=== PATIENT | male | born 1970 | race Caucasian/White ===

== ENCOUNTER 2019-11-04 15:23 | Emergency (ER) | payer OTHER, SELFPAY ==
--- NOTE | ~2019-11-04 | CT_ITS ---
EXAMINATION: CT abdomen pelvis w con DATE: 11/04/2019 17:22 INDICATION: Right-sided abdomen pain. TECHNIQUE: Computed tomography (CT) of the abdomen and pelvis was performed with 100 cc Omnipaque 350 intravenous contrast. The dose-length product was 601.00 mGy-cm. Automated exposure control and iter ative reconstruction technique were employed. COMPARISON: None. FINDINGS: The lung bases are unremarkable. No significant pleural or pericardial effusion. Heart size is normal. There are calcified granulomas in the spleen. No bowel obstruction. There is a 3 mm right UVJ stone with moderate right hydroureteronephrosis. There is a 4 cm right renal cyst. Tiny fat-cont aining umbilical hernia. Colonic diverticulosis without evidence for diverticulitis. No free air or f ree fluid. There were wedge compression deformities of T12, L1 and L2, likely chronic. IMPRESSION: 1. 3 mm right UVJ stone with moderate hydroureteronephrosis. Reviewed, dictated and finalized at location [facility]. LAB TECHNICIAN
[2019-11-04 15:24] VITALS: BP 154/108; PULSE 66; RESP 20; O2SAT 100
[2019-11-04 15:36] LABS: Basophils Absolute Auto 0.1 K/mm3 (0.0-0.1); Basophils Percent Auto 0.6 % (0.2-1.2); Eosinophils Absolute Auto 0.2 K/mm3 (0-0.3); Eosinophils Percent Auto 1.2 % (0-4.4); Hematocrit 40.5 % (42.0-52.0); Hemoglobin 13.5 g/dL (14.0-18.0); Immature Granulocyte Absolute 0.04 K/mm3 (0.00-0.031); Immature Granulocyte Percent A 0.3 % (0-0.5); Lymphocytes Absolute Auto 2.93 K/mm3 (0.9-3.2); Lymphocytes Percent Auto 20.6 % (18.3-44.2); Mean Corpuscular HGB Conc 33.3 g/dl (32-36); Mean Corpuscular Hemoglobin 28.9 pg (26-34); Mean Corpuscular Volume 86.7 fl (80-100); Mean Platelet Volume 9.9 fl (7.4-10.4); Monocytes Absolute Auto 1.3 K/mm3 (0.1-0.6); Monocytes Percent Auto 8.8 % (2.6-8.5); Neutrophils Absolute Auto 9.8 K/mm3 (1.3-6.7); Neutrophils Percent Auto 68.5 % (45.5-73.1); Platelet Count Result 283 k/mm3 (150-375); Red Blood Count 4.67 M/mm3 (4.6-6.20); Red Cell Distribution Width 13.5 % (11.5-14.5); White Blood Count 14.3 K/mm3 (4.5-10.0)
[2019-11-04 15:48] LABS: Blood Urea Nitrogen 20 mg/dL (9-20); Calcium 9.5 mg/dL (8.4-10.2); Carbon Dioxide 24 mmol/L (22-30); Chloride 103 mmol/L (98-107); Estimated CRCL calculation 84 ml/min; Estimated Glomerular Filt Rate > 60; Glucose 110 mg/dL (75-110); Potassium 4.1 mmol/L (3.4-5.0); Sodium 139 mmol/L (137-145)
--- NOTE | 2019-11-04 16:09 | ED.BACK ---
HPI - Back Pain/Injury General Chief Complaint: Abdominal Pain Stated Complaint: right flank pain Time Seen by Provider: 11/04/19 16:06 Source: patient and RN notes reviewed Mode of arrival: ambulatory Limitations: no limitations History of Present Illness HPI Narrative: Pt is a 49 y/o male who presents to the ED with c/o right flank pain that radiates to his right groin area which began at 0100 last night. Pt states he was seen at [facility] last night shortly after his pain began and he was discharged at around 0300. He denies having any CT scans done. Pt states his symptoms were alleviated when he was discharged last night from the hospital. However, pt states his pain has came back today which prompted him to come to the ED today. Pt reports chills, nausea, vomiting, and dysuria, but denies a fever. Pt states he has taken 2 Excedra medication this morning. MD elicited complaint: other (right flank pain) Onset (ago): day(s) (began 0100 last night) Timing: intermittent Location: right flank Radiation: groin (right groin area) Associated symptoms: chills, dysuria and other (nausea; vomiting) Related Data Allergies Allergy/AdvReac Type Severity Reaction Status Date / Time Penicillins Allergy Unknown Rash Verified 11/04/19 16:18 Review of Systems Review of Systems: All systems reviewed & are unremarkable except as noted in HPI and below Constitutional: Constitutional: Reports chills and Denies fever(s) Gastrointestinal: Gastrointestinal: Reports nausea and Reports vomiting Genitourinary: Genitourinary: Reports dysuria Musculoskeletal: Musculoskeletal: Reports back pain (right flank pain which radiates to his right groin area) [facility] Past Medical History Medical History (Updated 11/04/19 @ 17:43 by Chino Jacome DO) Healthy adult Surgical History Surgical History (Updated 11/04/19 @ 02:41 by Wes Pritchard) No history of previous surgery Family History Family History (Updated 07/05/14 @ 07:13 by DOCTOR UNKNOWN) Father Cerebrovascular accident Social History Social History Smoking status: Never smoker Alcohol intake: current Gender identity (if verbalized by the patient): Male Exam Narrative: Exam Narrative: APPEARANCE: No acute distress, nontoxic, resting in bed EYES: EOMI HEENT: Normocephalic, atraumatic, OMM RESPIRATORY: No respiratory distress Clear to auscultation bilaterally with no rhonchi wheezing or rales. CARDIOVASCULAR: Regular rate and rhythm without murmurs rubs or gallops. ABDOMINAL: Soft, nontender, nondistended, no rebound or guarding right flank tenderness MUSCULOSKELETAl: Moves all extremities. No clubbing, cyanosis or edema. NEURO: Awake and alert. Following commands, speech normal, no focal deficits SKIN:: Warm, dry. No rashes lesions or abrasions PSYCHIATRIC: Normal affect/mood, Course Course Emergency Course: Discussed with patient results of workup and diagnosis. Discussed need for follow-up with primary care, proper use of medication, and reasons to return to the emergency department. Patient understands and agrees to current treatment plan Vital Signs Vital signs: Vital Signs Pulse Rate 66 11/04/19 15:24 Respiratory Rate 20 11/04/19 15:24 Blood Pressure 154/108 H 11/04/19 15:24 Pulse Oximetry 100 11/04/19 15:24 Pulse Rate 66 11/04/19 15:24 Respiratory Rate 20 11/04/19 15:24 Blood Pressure 154/108 H 11/04/19 15:24 Pulse Oximetry 100 11/04/19 15:24 MDM - Back Pain/Injury Lab Data Result diagrams: 11/04/19 15:28 11/04/19 15:28 Labs: Lab Results 11/04/19 11/04/19 11/04/19 Range/Units 15:28 15:28 16:20 WBC 14.3 H (4.5-10.0) K/mm3 RBC 4.67 (4.6-6.20) M/mm3 Hgb 13.5 L (14.0-18.0) g/dL Hct 40.5 L (42.0-52.0) % MCV 86.7 (80-100) fl MCH 28.9 (26-34) pg MCHC 33.3 (32-36) g/dl RDW 13.5 (11.5-14.5) % Plt Count 283 (150-375) k/mm3 MPV 9.9 (7.4-10.
[2019-11-04 16:33] LABS: Add Urine Microscopic? NO; Appearance Urine Clear (Clear); Bilirubin Urine Negative (Negative); Blood Urine Negative (Negative); Color Urine Yellow (Yellow); Glucose Urine UA Negative (Negative); Ketones Urine Negative (Negative); Leukocyte Esterase Ur Negative LEU/UL (Negative); Nitrate Urine Negative (Negative); Protein Urine Negative (Negative); Specific Grav Ur 1.026 (1.001-1.035); Urobilinogen Urine Negative mg/dL (<2.0)
[2019-11-04] MEDS: ONDANSETRON INJ 4 MG/2 ML VIAL IV PUSH (16:41)
[2019-11-04] MEDS: LACTATED RINGERS 1,000 ML 999 ML IV CONT (16:42)
[2019-11-04] MEDS: KETOROLAC 30 MG/ML VIAL (*BKC) IV PUSH (16:42)
[2019-11-04] MEDS: TAMSULOSIN HCL 0.4 MG CAPSULE PO (17:55)
[2019-11-04 18:15] VITALS: BP 158/82; PULSE 82; RESP 18; O2SAT 98
--- NOTE | 2019-11-07 09:38 | PC.NURSE ---
LATE ENTRY This note is being entered to document information to the patient's record. The following information was omitted on [11/04/19], by [Erin Barone RN]. Stop time for LR is 3718
--- NOTE | 2020-01-05 09:29 | PC.NURSE ---
LATE ENTRY This note is being entered to document information to the patient's record. The following information was omitted on [11/04/20], by [Erin Barone].LR stop time is 7363
== END 2019-11-04 18:17 | disposition home or self-care (01) ==
PROVIDERS: Emergency Medicine; Emergency Provider Emergency Medicine
DX: N13.2 Hydronephrosis with renal and ureteral calculous obstruction (principal)
CPT/HCPCS: 36415; 74177; 80048; 81003; 85025; 96361; 96374; 96375; 99284; A9270; J1885; J2405; J7120; Q9967

== ENCOUNTER 2020-12-08 16:42 | Emergency (ER) | payer OTHER, SELFPAY ==
--- NOTE | ~2020-12-08 | XR_ITS ---
[id number] DATE: 12/08/2020 17:21 INDICATION: Left lower rib pain after coughing TECHNIQUE: PA chest. 3 views of the left ribs. COMPARISON: None FINDINGS: Normal heart size. No hilar or mediastinal enlargement. No pulmonary infiltrate or consolid ation, pleural effusion or pulmonary vascular congestion or pneumothorax. No left rib fracture is detected. IMPRESSION: Negative Reviewed, dictated and finalized at [facility]. Reviewed, dictated and finalized at location [facility]. [employer] IMPRESSION: Negative
[2020-12-08 16:43] VITALS: BP 222/120; PULSE 71; RESP 20; TEMP 36.6; O2SAT 96
--- NOTE | 2020-12-08 16:54 | ED.GENADULT ---
HPI - General Adult General Chief complaint: Unspecified Stated complaint: rib pain Time Seen by Provider: 12/08/20 16:55 Source: patient Mode of arrival: ambulatory Limitations: no limitations History of Present Illness HPI narrative: Patient stated that on Wednesday he was working outside he was coughing and suddenly had a stabbing pain in his left superficial side, lower rib area. The pain is lessened but is still there is especially bad with coughing, he denies any shortness of breath, it is nonradiating pain and he denies any other trauma. He has been treating the pain at home with ibuprofen, 600 mg with some relief. Onset (ago): day(s) Location: chest and left (ribs) Associated symptoms: denies other symptoms Treatments prior to arrival: NSAID Related Data Allergies Allergy/AdvReac Type Severity Reaction Status Date / Time Penicillins Allergy Unknown Rash Verified 11/04/19 16:18 Review of Systems Review of Systems: All systems reviewed & are unremarkable except as noted in HPI and below PMFSH Past Medical History Medical History Healthy adult Surgical History Surgical History No history of previous surgery Family History Family History Father Cerebrovascular accident Social History Social History Smoking status: Never smoker Alcohol intake: current Gender identity (if verbalized by the patient): Male Exam Const: General: cooperative, healthy appearing and comfortable Chest: Chest palpation & inspection: normal inspection of the chest and localized rib tenderness with anteroposterior compression (T8-9 on left lateral chest) Resp: Effort & Inspection: normal respiratory effort Auscultation: clear to auscultation bilaterally Cardio: Rate: regular rate Rhythm: regular rhythm Skin: General skin exam: normal color Extrem: General: normal to inspection Psych: Appearance: grossly normal Course Course Emergency Course: Xrays unremarkable. Results discussed with the patient. Went over splinting and deep breathing and coughing. Ready for discharge Vital Signs Vital signs: Vital Signs Temperature 36.6 C 12/08/20 16:43 Pulse Rate 71 21 16:43 Respiratory Rate 12/08/20 16:43 Blood Pressure 222/120 H 12/08/20 16:43 Pulse Oximetry 96 12/08/20 16:43 Temperature 36.6 C 12/08/20 16:43 Pulse Rate 12/08/20 16:43 Respiratory Rate 12/08/20 16:43 Blood Pressure 222/120 H 12/08/20 16:43 Pulse Oximetry 96 12/08/20 16:43 Medical Decision Making Vital Signs Vital Signs: Vital Signs Temperature 36.6 C 12/08/20 16:43 Pulse Rate 12/08/20 16:43 Respiratory Rate 12/08/20 16:43 Blood Pressure 222/120 H 12/08/20 16:43 Pulse Oximetry 96 12/08/20 16:43 Temperature 36.6 C 12/08/20 16:43 Pulse Rate 12/08/20 16:43 Respiratory Rate 12/08/20 16:43 Blood Pressure 222/120 H 12/08/20 16:43 Pulse Oximetry 96 12/08/20 16:43 Discharge Plan Discharge Clinical Impression: Muscle strain of chest wall Qualifiers: Encounter type: initial encounter Qualified Code(s): S29.011A - Strain of muscle and tendon of front wall of thorax, initial encounter Patient Disposition: Home, Self-Care Condition: Stable Instructions: Antibiotic Form, Musculoskeletal Pain (ED) Additional Instructions: your x-rays did not show any rib fracture or pneumothorax. You need to continue to deep breathing cough, please splint your left chest wall with a pillow and cough several times day. Treat your pain with ibuprofen or Tylenol as needed. Avoid heavy lifting. Return to the emergency room should you have significant shortness of breath. Follow-up with your primary care physician as needed. Prescriptions: No Action hydro
[2020-12-08 18:39] VITALS: BP 169/101; PULSE 69; RESP 17; O2SAT 97
== END 2020-12-08 18:50 | disposition home or self-care (01) ==
PROVIDERS: Emergency Provider Emergency Medicine
DX: S29.011A Strain of muscle and tendon of front wall of thorax, initial encounter (principal); X50.9XXA Other and unspecified overexertion or strenuous movements or postures, initial encounter
CPT/HCPCS: 71101; 99283

== ENCOUNTER 2022-08-27 22:49 | Emergency (ER) | payer OTHER, SELFPAY ==
[2022-08-27 22:50] VITALS: BP 154/78; PULSE 97; RESP 18; TEMP 37; O2SAT 100
--- NOTE | 2022-08-27 23:42 | ED.EAR ---
HPI - Ear Problem General Chief complaint: Ear <MELISSA Bruce Last Filed: 08/28/22 02:01> Stated complaint: LEFT EAR INFECTION <MELISSA Bruce Last Filed: 08/28/22 02:01> Time Seen by Provider: 08/27/22 23:28 <MELISSA Bruce Last Filed: 08/28/22 02:01> History of Present Illness HPI Narrative: Patient is a 52-year-old male with a history of hypertension here for evaluation of left ear pain over the past day. He attempted Debrox and manual irrigation without success. States his eardrum now feels full and muffled. Patient states that he has a chronic issue with ear pain, states that he has ear congestion and frequently has to pop his eardrum. He has never had an ear infection in his adult life. He denies any fevers. He did receive a flu shot 2 days ago and states that he feels generally achy but has not attempted any medication for this. No chest pain, nausea, vomiting, pain behind the ear, tinnitus. Additionally, patient states that he has had some right eye irritation over the past week after some dust blew in it last week. No significant pain or discharge. No change to vision. He wears glasses. <Pepper Ramirez PA-C - Last Filed: 08/28/22 02:01> Related Data Allergies/adverse reactions: Allergies Allergy/AdvReac Type Severity Reaction Status Date / Time Penicillins Allergy Unknown Rash Verified 11/04/19 16:18 <MELISSA Bruce Last Filed: 08/28/22 02:01> Review of Systems Review of Systems: Gen.: Denies fevers or chills Eyes: Denies eye pain or visual change ENT: Reports left ear pain. Denies congestion Respiratory: Denies shortness of breath or cough CV: Denies chest pain or palpitations GI: Denies abdominal pain nausea, emesis or diarrhea denies burning, urgency, frequency or hematuria Musculoskeletal: Denies back pain or muscle pain Neuro: Denies numbness, tingling, weakness or focal weakness Skin: Denies rash Except as documented, all other systems reviewed and negative <Pepper Ramirez PA-C - Last Filed: 08/28/22 02:01> [facility] Past Medical History Medical History: Medical History Healthy adult <Pepper Ramirez PA-C - Last Filed: 08/28/22 02:01> Surgical History Surgical History: Surgical History No history of previous surgery <Pepper Ramirez PA-C - Last Filed: 08/28/22 02:01> Family History Family History: Family History Father Cerebrovascular accident <Pepper Ramirez PA-C - Last Filed: 08/28/22 02:01> Social History Social History: Social History Smoking status: Never smoker Alcohol intake: current Gender identity (if verbalized by the patient): Male <Pepper Ramirez PA-C - Last Filed: 08/28/22 02:01> Exam Narrative: APPEARANCE: Well appearing, no pain in distress, well-nourished. Head: Normocephalic and atraumatic. EYES: Fluorescein exam reveals no area of uptake. PERRLA/EOMI, conjunctivae clear NOSE: No nasal drainage EARS: External ear normal in appearance. Left TM is diffusely injected and has bulla. No mastoid tenderness. Right TM is clear. THROAT: Oropharynx is clear. Mucous membranes are moist. NECK: Supple. No adenopathy, no masses. RESPIRATORY: Airway patent, respirations nonlabored. Clear to auscultation bilaterally, no rales, rhonchi, wheezing. CARDIOVASCULAR: Regular rate and rhythm without murmurs, rubs, or gallops. ABDOMINAL: Normoactive bowel sounds. Soft, nontender, nondistended. No rebound tenderness or guarding. MUSCULOSKELETAL: Extremities are warm and well-perfused. Moves all extremities well. No edema. NEURO: Normal speech. No focal neurologic deficits. SKIN: Skin is warm and d
[2022-08-28] MEDS: CEFDINIR 300 MG CAPSULE PO (00:14)
[2022-08-28] MEDS: KETOROLAC 30 MG/ML VIAL (*BKC) IM (00:14)
== END 2022-08-28 00:45 | disposition home or self-care (01) ==
LOC: ANHED 23:44
PROVIDERS: Emergency Provider Preventive Medicine Aerospace Medicine
DX: H73.012 Bullous myringitis, left ear (principal)
CPT/HCPCS: 96372; 99283; A9270; J1885

== ENCOUNTER 2025-04-08 14:11 | Emergency (ER) | payer BC, SELFPAY ==
--- NOTE | ~2025-04-08 | XR_ITS ---
EXAMINATION: XR hand LT min 3V DATE: 04/08/2025 14:30 INDICATION: Swelling and bruising at the left third and fourth digits. TECHNIQUE: Posteroanterior, oblique and lateral views of the left hand were obtained. COMPARISON: None. FINDINGS: There is a ring which obscures a small portion of the diaphysis of the left fourth proximal phalanx. Bone alignment is normal. No fractures identified. Mild osteoarthritis at the distal radioulnar and f irst carpometacarpal joints. Remaining joint spaces are relatively preserved. No erosions to suggest inflammatory arthritis. Soft tissue swelling about the proximal to mid aspect of the left third and f ourth digits. IMPRESSION: 1. No acute osseous abnormality. Reviewed, dictated and finalized at location A.
--- NOTE | ~2025-04-08 | XR_ITS ---
EXAMINATION: XR lumbar spine 2-3V, XR sacrum coccyx min 2V DATE: 04/08/2025 15:25 INDICATION: Lumbar and sacrococcygeal pain post fall TECHNIQUE: 1. Anteroposterior and lateral views of the lumbar spine, and cone-down lateral view of the lumbosacr al junction were obtained. 2. AP mucosa of the sacrum, AP view of the coccyx and lateral view of the sacrum and coccyx were obta ined. COMPARISON: None. FINDINGS: Lumbar spine: 9 degrees mid lumbar levocurvature. Mild thoracolumbar kyphosis with chronic appearing compression fr actures with 10% anterior vertebral body height loss at T12 and 20% at L1 and L2. There are also Schm orl's nodes along the superior endplates of T12, L2 and L3. Moderate disc height loss at L3-L4 and L5 -S1 and mild disc height loss at L1-L2 and L4-L5. Mild to moderate lumbar facet osteoarthritis. There is also mild bilateral sacroiliac osteoarthritis. Sacrum and coccyx: There is approximately 3 mm retrolisthesis of C1 with respect to L6 which appears new since CT dated 11/04/2019 which could be due to either hypermobility or trauma. Sacral arches are intact. No fractur e identified. IMPRESSION: 1. Moderate lumbar spondylosis. 2. 3 mm retrolisthesis of C1 with respect to L6 which is new since CT dated 10/27/2019 and could be d ue to sacrococcygeal hypermobility or sequela of trauma. No evident fracture. Reviewed, dictated and finalized at location A. IMPRESSION: 1. Moderate lumbar spondylosis. 2. 3 mm retrolisthesis of C1 with respect to L6 which is new since CT dated and could be due to sacrococcygeal hypermobility or sequela of trauma. No evident fracture.
--- NOTE | ~2025-04-08 | XR_ITS ---
EXAMINATION: XR finger 4th LT min 2V DATE: 04/08/2025 15:25 INDICATION: Left fourth digit pain post fall TECHNIQUE: Dorsal palmar, lateral and 2 oblique views of the left fourth digit were obtained COMPARISON: None FINDINGS: Bone alignment is normal. No fracture. Mild osteoarthritis at the distal radioulnar joint. Mild soft tissue swelling about the proximal aspect of the third and fourth digits. IMPRESSION: 1. No acute osseous abnormality. Reviewed, dictated and finalized at location A.
[2025-04-08 14:14] VITALS: BP 153/98; PULSE 75; RESP 16; TEMP 36.3; O2SAT 98
--- NOTE | 2025-04-08 15:22 | ED.GENADULT ---
HPI - General Adult General Chief complaint: Fall Stated complaint: Fell -injury to left hand/tailbone Time Seen by Provider: 04/08/25 14:45 History of Present Illness HPI narrative: Patient 54-year-old gentleman presents emergency department with chief complaint of left hand and tailbone injury. The patient reports he was hiking and fell landed on his left hand the patient reports that his 3rd digit was you have a dislocated and he managed to relocated himself. The patient states that he had a ring on his 4th digit and reports that his finger ultimately started swelling and reports he was unable to remove the ring home and was getting very tight. The patient denies bowel or bladder incontinence denies numbness or tingling Related Data Allergies Allergy/AdvReac Type Severity Reaction Status Date / Time Penicillins Allergy Unknown Rash Verified 04/08/25 14:12 Review of Systems Review of Systems: A 10 system review of systems was completed on the patient and is negative except for what is stated in the HPI. Nursing and ancillary documentation was reviewed. [facility] Past Medical History Medical History Healthy adult Surgical History Surgical History No history of previous surgery Family History Family History Father Cerebrovascular accident Social History Social History Smoking status: Never smoker Alcohol intake: current Gender identity (if verbalized by the patient): Male Exam Narrative: GENERAL: Well-appearing, well-nourished, and in no acute distress. HEAD: Normocephalic, atraumatic. EYES: PERRLA and EOMI. ENT: Nares clear, no rhinorrhea or epistaxis. Mucous membranes moist. NECK: Supple. CHEST: Clear to auscultation. No respiratory distress. HEART: Regular rate and rhythm. No murmur heard. Normal peripheral pulses. ABDOMEN: Soft, nontender, nondistended, normal active bowel sounds. EXTREMITIES: Normal range of motion limited range of motion at the 3rd digit at the PIP joint and there is swelling present at the PIP joint of the 4th digit of the left hand.. No edema. Back: There is tenderness to palpation in the lumbar region SKIN: Warm, dry, no rash. NEURO: No focal deficits. Alert and oriented x3. PSYCH: Normal mood and affect. Course Vital Signs Vital signs: Vital Signs Temperature 36.3 C L 04/08/25 14:14 Pulse Rate 75 04/08/25 14:14 Respiratory Rate 16 04/08/25 14:14 Blood Pressure 153/98 H 04/08/25 14:14 Pulse Oximetry 98 04/08/25 14:14 Oxygen Delivery Room Air 04/08/25 14:14 Temperature 36.3 C L 04/08/25 14:14 Pulse Rate 75 04/08/25 14:14 Respiratory Rate 16 04/08/25 14:14 Blood Pressure 153/98 H 04/08/25 14:14 Pulse Oximetry 98 04/08/25 14:14 Oxygen Delivery Room Air 04/08/25 14:14 Medical Decision Making MDM Narrative Medical decision making narrative: Differential diagnosis includes fracture, dislocation, Plain film x-rays of the left hand showed There is a ring which obscures a small portion of the diaphysis of the left fourth proximal phalanx. Bone alignment is normal. No fractures identified. 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 Remaining joint spaces are relatively preserved. No erosions to suggest inflammatory arthritis. Soft tissue swelling about the proximal to mid aspect of the left third and fourth digits. IMPRESSION: 1. No acute osseous abnormality. The ring was able to be removed by nursing staff and her plain film x-rays of the 4th digit were obtained to evaluate for possible fracture The lumbar spine and sacral coccyx x-rays were ordered Plain film x-rays of the 4 digits showed no evidence of fracture after the ring was removed. X-rays of the LS spine showed a possible injury at the sacrum. impression: Sacral injury 3rd digit injury left hand Contusion 4th digit left hand Vital Signs Vital Signs: Vital Signs Temperature 36.3 C L 04/08/25 14:14 Pulse Rate 75 04/08/25 14:14 Respiratory Rate 16 04/08/25 14:14 Blood Pressure 153/98 H 04/08/25 14:14 Pulse Oximetry 98 04/08/25 14:14 Oxygen Delivery Room Air 04/08/25 14:14 Temperature 36.3 C L 04/08/25 14:14 Pulse Rate 75 04/08/25 14:14 Respiratory Rate 16 04/08/25 14:14 Blood Pressure 153/98 H 04/08/25 14:14 Pulse Oximetry 98 04/08/25 14:14 Oxygen Delivery Room Air 04/08/25 14:14 Discharge Plan Discharge Clinical Impression: Coccyx contusion, Sprain of left ring finger, Sprain of left middle finger Patient Disposition: Home Condition: Stable Instructions: Antibiotic Form, Jammed Finger (ED), Sacral Fracture (ED), Finger Sprain (ED) Additional Instructions: Please wear the finger splint on your 3rd digit that was dislocated. Please follow-up with your primary care provider as he continued to have symptoms you may need referral to Hand surgery. Please apply cool packs to the affected area of your sacrum there was no definite fracture but there was sinus that you may have had a slight injury to the area on the x-rays. If he continued to have pain you may need to have additional imaging Patient Language: Salvadorean Prescriptions: New diclofenac potassium 50 mg tablet 50 mg PO TID PRN (Reason: pain) Qty: 30 0RF cyclobenzaprine 10 mg tablet 10 mg PO TID PRN (Reason: muscle spasm) Qty: 21 0RF cyclobenzaprine 10 mg tablet 10 mg PO TID PRN (Reason: muscle spasm) Qty: 21 0RF diclofenac potassium 50 mg tablet 50 mg PO TID PRN (Reason: pain) Qty: 30 0RF No Action cefdinir 300 mg capsule 300 mg PO Q12H Qty: 14 0RF hydrocodone-acetaminophen 5-325 mg tablet 1 tablet PO Q4H PRN (Reason: pain) Qty: 12 0RF tamsulosin [Flomax] 0.4 mg capsule 0.4 mg PO DAILY Qty: 5 0RF ibuprofen [IBU] 600 mg tablet 600 mg PO Q6H PRN (Reason: pain) Qty: 20 0RF Follow-up/Referrals: [facility] [Primary Care Provider] - Time of Disposition: 15:59
--- OUTSIDE RECORDS SUMMARY | 2025-04-08 18:08 | XMS_ITS | Clinical Summary ---
Author Organization [facility] Address [address] [place] [address] Phone Care Team Providers Care Fat Purification Worker Name Role Phone Tanvir Suarez MD Primary Care Provider [phone] Allergies Active Allergy Reactions Criticality Noted Date Comments Penicillins Hives 02/04/2019 Medications doxycycline hyclate (VIBRAMYCIN) 100 MG Capsule Take 100 mg by mouth as needed. Active ATORVASTATIN CALCIUM PO Take by mouth. Active HYDROcodone-shekhar taminophen (NORCO) 5-325 MG Tablet Take 1 Tab by mouth every 6 hours as needed for Moderate or more severe pain. 12 Tab 09/26/2020 Active Active Problems Problem Noted Date Diagnosed Date Appendicitis, acute 02/05/2019 Social History Tobacco Use Types Packs/Day Years Used Date Smoking Tobacco: Never Smokeless Tobacco: Never Alcohol Use Standard Drinks/Week Comments Not Currently 0 (1 standard drink = 0.6 oz pur e alcohol) Sex and Gender Information Value Date Recorded Sex Assigned at Not on file Legal Sex Male 10:02 PM CDT Gender Identity Not on file Sexual Orientation Not on file Last Filed Vital Signs Vital Sign Reading Time Taken Comments Blood Pressure 158/102 09/26/2020 1:27 PM [employer] Pulse 70 09/26/2020 10:56 AM [employer] Temperature 36.6 C (97.9 F) 09/26/2020 10:56 AM [employer] Respiratory Rate 18 09/26/2020 10:56 AM [employer] Oxygen Saturation 96% 09/26/2020 10:56 AM [employer] Inhaled Oxygen Concentration - - Weight 95.3 kg (210 lb) 09/26/2020 10:56 AM [employer] Height 180.3 cm (5' 11) 09/26/2020 10:56 AM [employer] Body Mass Index 29.29 09/26/2020 10:56 AM [employer] Plan of Treatment Health Maintenance Due Date Last Done Comments Hepatitis C Virus (HCV) Screening 1970 TdaP Immunization 1970 Hepatitis B Immunization (1 of 3 - 19+ 3-dose series) 1989 Colonoscopy 2015 Colorectal Cancer Screening 2015 Cologuard 2020 Immunochemical Fecal Occult Blood 2020 Pneumococcal Immunization (5 0+ years) (1 of 1 - PCV) 2020 Zoster Immunization (1 of 2) 2020 Influenza Immunization (#1) 2024 10/11/2019 SARS-COV-2 Immunization ( - season) 2024 Respiratory Syncytial Virus (RSV) Immunization (Adult) (1 - 1-dose 75+ series) 2045 Meningococcal Immunization (ACWY) Aged Out No longer eligible based on patient's age to complete this topic Pneumococcal Immunization Combined Aged Out No longer eligible based on patient's age to complete this topic Rotavirus Immunization Aged Out No lo nger eligible based on patient's age to complete this topic Insurance [address] [place] Care Teams Fat Purification Worker Relationship Specialty Start Date End Date Tanvir Suarez MD [address] [id number] PCP - General Internal Medicine 09/26/20
--- OUTSIDE RECORDS SUMMARY | 2025-04-08 18:08 | XMS_ITS | Clinical Summary ---
Author Organization [facility] Address [address] [place] [address] Care Team Providers Care Homeopathic Doctor Name Role Phone Sophia Cano NP Primary Care Provider [phone] Allergies Active Allergy Reactions Criticality Noted Date Comments Lisinopril Cough Low 12/16/2022 Penicillins Hives Medium 02/04/2019 Medications atorvastatin (LIPITOR) 40 mg tablet Take 1 tablet (40 mg total) by mouth daily Active albuterol HFA (PROVENTIL HFA,VENTOLIN HFA,PROAIR HFA) 90 mcg/actuation inhaler Inhale 2 puffs every 6 (six) hours as needed for wheezing 3 each 4 08/06/2023 Active fluticasone propion-salmete roL (ADVAIR DISKUS) 100-50 mcg/dose diskus inhaler Inhale 1 puff 2 (two) times a day Rinse mouth with water after use. Do not swallow. 60 each 1 08/06/2023 Active amLODIPine (NORVASC) 10 mg tablet TAKE 1 TABLET (10 MG TOTAL) BY MOUTH DAILY 90 tablet 1 08/10/2024 Active Active Problems Problem Noted Date Diagnosed Date Dyspnea, unspecified 09/06/2023 Assessment & Plan (09/06/2023 4:40 PM CDT): Per patient, [facility]. Symptoms have improved with the inhalers. 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 He has recently started taking it consistently. BP improved from previous visit, notes the chest pains have resolved. Will have patient take home BP's x 1 week and send in via [facility]. Assessment & Plan (08/06/2023 9:01 AM CDT): BP elevated and not at goal, increase Amlodipine to 10 mg daily Updated labs ordered. Home BP log Follow up in 4 weeks. Impaired fasting glucose 08/06/2023 Essential (primary) hypertension 08/06/2023 Mixed hyperlipidemia 08/06/2023 Neoplasm of uncertain behavior of skin Chronic low back pain 08/06/2023 Overview (08/06/2023): May 01, 2014 Entered By: EVELIO BORREGO Comment: chronic all his life Other chronic pain 08/06/2023 Lower back pain 08/06/2023 Lumbago 08/06/2023 Pain in the coccyx 08/06/2023 Overexertion 08/06/2023 Patellofemoral syndrome 08/06/2023 Presbyopia 08/06/2023 Regular astigmatism 08/06/2023 Renal stone 08/06/2023 Segmental dysfunction 08/06/2023 Segmental dysfunction of thoracic region 023 Soft tissue swelling 08/06/2023 Strain of lumbar region 08/06/2023 Overview (08/06/2023): BACK STRAIN LUMBAR: Left lumbar paraspinous muscles. Spasms noted on exam with positive Left SLR. Discussed rest, heat aplpication and meds as below. instructed pt to only take flexeril QHS and to take Naprosyn bid x 7days then prn. Also discussed importance of stretching and strenghening his low back and core to mitigate future episodes of lbp. Pt demonstrates understanding. He is to f/u if his sx persist > 7 more days or sooner if sx worsen for further examination and possible imaginag and PT consult. 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 Cardiac arrhythmia, unspecified 08/06/2023 Cervical spondylosis 08/06/2023 Glycinemia (with methyl malonic acidemia) 2022 Pain in left knee 08/06/2023 Pain in right knee 08/06/2023 Overview (08/06/2023): Jul 10, 2021 Entered By: VANESA TRINH Comment: arthoscopy 01/26 Appendicitis, acute 02/05/2019 Immunizations Immunization Administration Dates Next Due Anthrax 08/01/2012,06/20/2012 Flucelvax Influenza Quad 10/11/2019 H1N1 Inj 01/28/2010,01/27/2010 Hep A, Adult 02/11/2003,02/11/2002 Hep B Vaccine 07/20/2004, 3,03/11/2003,02/11,02/11/2002 IPV 01/07/2002 Influenza LAIV (Nasal) 09/15/2015,2011,09/03/2011,09/09,10/07/2009,09/22/2008,10/11/2005 Influenza, Quadrivalent, Spl it, Intramuscular 07/25/2017,07/26/2016,2014 Influenza, Quadrivalent, Spl it, Preservative Free, Intramuscular 08/25/2022,08/04/2021,10/13/2020,10/11,09/02/2018 Influenza, Split 09/05/2006,09/23/2003, 2 Influenza, Trivalent, Cell Culture-based MDCK, Preservative Free, Antibiotic Free, Intramuscular 10/11/2019 Influenza, Trivalent, IM (MDV) 08/14/2013 Influenza, Unspecified 09/06/2023(Deferr ed: Patient Refused),08/08/2020,08/08/2018, 017,07/26/2016,08/08/2015,09/08/2014,1 ,11/13/2007 MMR 06/09/2020,01/07/2002 Meningococcal MCV4P (Menactra) 06/20/2012 Meningococcal Polysaccharide (Menomune) 02/24/2002 Moderna SARS-CoV-2 Monovalen t Vaccination (12+ YRS) 01/18/2021 PPD TEST 06/20/2012 Pfizer SARS-CoV-2 Monovalent Vaccination (12+ Yrs) PURPLE 11/05/2021 Smallpox 11/10/2012 Td, adsorbed 09/30/2002 Tdap 05/12/2017,06/20/2012,11/08/2007 Typhoid Inactivated 06/20/2012,10/07/2009,2005 Typhoid, Unspecified 01/26/2004,01/07/2002 Yellow Fever 06/20/2012,02/11/2002 Surgical History Surgery Date Site/Laterality Comments APPENDECTOMY KNEE SURGERY Right Medical History Medical History Date Comments Hypertension Hyperlipidemia Low back pain Degenerative lumbar disc Headache Family History Medical History Relation Name Comments No Known Problems Brother Heart disease Father Hyperlipidemia Father Hypertension Father Transient ischemic attack Father Dementia Mother Relation Name Status Comments Brother Alive Father Mother Social History Tobacco Use Types Packs/Day Years Used Date Smoking Tobacco: Never Passive Smoke Exposure: Never Smokeless Tobacco: Never PHQ-2 Answer Date Recorded PHQ-2 Total Score (If total score is 3 or more points, staff should administer the PHQ-9) 0 09/06/2023 Personal Safety Answer Date Recorded Getting School Help Needed Not on file 11/26 Sex and Gender Information Value Date Recorded Sex Assigned at Not on file Legal Sex Male 1:27 PM COMMISSIONER OF OFFICIALS Gender Identity Not on file Sexual Orientation Not on file Obstetrics History Last Filed Vital Signs Vital Sign Reading Time Taken Comments Blood Pressure 144/90 11/26/2023 8:17 AM COMMISSIONER OF OFFICIALS Pulse 94 11/26/2023 8:17 AM COMMISSIONER OF OFFICIALS Temperature 37.7 C (99.9 F) 11/26/2023 8:17 AM COMMISSIONER OF OFFICIALS Respiratory Rate 16 11/26/2023 8:17 AM COMMISSIONER OF OFFICIALS Oxygen Saturation 96% 11/26/2023 8:17 AM COMMISSIONER OF OFFICIALS Inhaled Oxygen Concentration - - Weight 102.2 kg (225 lb 3.2 oz) 11/26/2023 8:17 AM COMMISSIONER OF OFFICIALS Height 180.3 cm (5' 10.98) 11/26/2023 8:[address] Body Mass Index 31.42 11/26/2023 8:17 AM COMMISSIONER OF OFFICIALS Plan of Treatment Health Maintenance Due Date Last Done Comments Colon Cancer Screening-Colonoscopy 1970 Regular Well Visit/Exam 18-64 1988 Zoster Vaccine (1 of 2) 2020 Covid-19 Vaccine ( season) 2024 09/27/2023, 11/05/2021, 02/15/2021, Additional history exists Depression Screening 09/06/2024 09/06/2023, 08/06/20 23 Influenza Vaccine (Season Ended) 2025 09/27/2023, 08/25/2022, 08/04/2021, Additional history exists Prostate Cancer Screening-PSA 08/06/2025 08/06/2023 DTaP/Tdap/Td Vaccine (4 - Td or Tdap) 05/12/2027 05/12/2017, 06/20/2012, 11/08/2007, Additional history exists Hepatitis B Screening Completed 07/20/2004 , 08/25/2003, 03/11/2003, Additional history exists Hepatitis C Screening Completed 08/20/2020, 019 Pneumococcal vaccine <65 Aged Out No longer eligible based on patient's age to complete this topic Procedures Procedure Name Priority Date/Time Associated Diagnosis Comments PSA SCREEN Routine 08/06/2023 9:31 AM CDT Screening PSA (prostate specific antigen) HEPATITIS C ANTIBODY Routine 08/20/2020 1:29 PM CDT Screening examination for sexually transmitted disease from Last 3 Months or Most Recently Relevant to Health Maintenance Results * PSA screen (08/06/2023 9:31 AM CDT) PSA-Total 1.06 <=3.90 ng/mL [facility] Comment: Interpretive Data AGE SEX REFERENCE INTERVAL 0 minutes-150 years Female None 0 minutes-49 years Male None 50-59 years Male 0-3.90 60-69 years Male 0-5.40 70-79 years Male 0-6.20 80-150 years Male 0-6.20 The Sally PSA Total assay procedure was used. Results from different manufacturers or methods may not be comparable. Serial testing should be performed using the same method. Current interpretive data last revised 22. Blood 08/06/2023 9:31 AM CDT 08/06/2023 2:18 PM CDT Sophia Cano NP LAB BLOOD ORDERABLES Final Resul t Performing Organization Address City/[facility]/ZIP Co de Phone Number [facility] [address] Department [place] [address] * Hepatitis C antibody (08/20/2020 1:29 PM CDT) Hep C Ab Nonreactive Nonreactive [facility] Comment:Antibodies to HCV no t detected. Does NOT exclude the possibility of recent exposure to HCV. Blood specimen (specimen) 08/20/2020 1:29 PM CDT 08/20/2020 5:23 PM CDT Robby Boogie MD LAB MICROBIOLOGY - GENERA L ORDERABLES Edited Result - Final [facility] Department [place] [address] from Last 3 Months or Most Recently Relevant to Health Maintenance [place] [address] [facility] Care Teams Homeopathic Doctor Relationship Specialty Start Date End Date Sophia Cano NP [address] [place] [address] PCP - General Family Medicine 08/06/23
--- OUTSIDE RECORDS SUMMARY | 2025-04-08 18:09 | XMS_ITS | Data Portability ---
[facility] Address [address] [place] [address] Assessment No assessment recorded. Plan of Treatment Reminders Order Date Submit Date Provider Last Modified By Organization Details Last Modified Time Details Appointments None recorded. Lab SARS CoV 2 RNA (COVID-19), QL, turbine inspector-PCR, respiratory specimen - lucrecia casey @ noon 2020 021 [facility] (Lab), [address] [place], [address], 16:01:20 Referral None recorded. Procedures None recorded. Surgeries None recorded. Imaging None recorded. Medication Orders None recorded. Patient TargetsNo targets recorded. Patient Instructions Encounter Date Encounter Id Patient Instructions Last Modified By Organization Details Last Modified Time 11/12/2020 [id number] Reviewed the following recommendations: -Stay home and separate from others as much as possible. -Monitor your symptoms and seek medical attention for trouble breathing, persistent chest pain, confusion, or bluish lips or face. -Wear a mask if you must be around other people. -Wash your hands often for 20 seconds with soap and water and clean high-touch surfaces daily -You may discontinue home isolation if your symptoms are improving, it has been 10 days since symptoms started, and you have been fever free for at least 3 days. [email or web address] Not available 11/12/2020 11:37:39 Reason for Referral None Reported. Results Created Date Observation Date Name Description Value Unit Range Abnormal Flag Note LastModifiedBy Organization Detail LastModifiedTime Result Notes None recorded. Medical Equipment None Reported. Medications Name Sig Start Date Stop Date Status Note LastModified by Organization Details LastModified Time methocarbamol 500 mg tablet active Not Available Not Availabl e Not Available benzonatate 100 mg capsule TK 1 C PO Q 8 H PRN active Not Available Not Available No t Available doxycycline hyclate 100 mg tablet TK 1 T PO Q 12 H FOR 10 DAYS active Not Available Not Available No t Available Vitals None Recorded Social History None recorded. Functional Status None recorded. Mental Status None recorded. Family History Nothing Reported. Medical History No medical history recorded. Past Encounters Encounter ID Performer Location Encounter Start Date Encounter Closed Date Diagnosis/Indication Diagnosis SNOMED-CT Code Diagnosis ICD10 Code Diagnosis Note [id number] MD Lamont Pennygordo [address] [place] [address] 11/12/2020 10:35:13 11/13/2020 11:00:11 Suspected COVID-19 707105556 Z03.89 Health Concerns Section Related Observation LastModified by Organization Detai ls LastModified Time None Recorded Concern Status LastModified by Organization Details LastModified Time None Recorded Advance Directives Directive None Recorded Payers Encounter Date Sequence Insurance Name Policy Number Policy Mckeon Covered Member ID Mckeon Member ID Guarantor Name 11/12/2020 1 [facility] [place] Dameon Otoloe [id number] Dameon Otoole Notes Date Note Type Note Provider Name and Address Organization Details Recorded Time 11/12/2020 text/html COVID ScreeningReported bypatient.Onset/Durati on of fever:no fever Associated Symptoms:no cough; no shortness of breathCOVID-19 Symptoms May 2020Reported bypatient.COVID-19 Signs and Symptomscough resolved; fever resolved; shortness of breath resolved; chills resolved; repeated shaking with chills resolved; muscle pain resolved; headache resolved; sore throat resolved; sore throat same; loss of taste or smell resolved; vomiting or diarrhea resolved; fatigue resolved; anorexia resolved Associated Symptoms:no sputum production; no wheezing; no runny nose; no vomiting; no diarrhea; no nausea; no change in mental status; no hypotension; no tachycardia;body aches symptoms started last night ISHMAEL JACOBO NP Attn: Accounting,[address] [place], [address], [facility] [place] 11/12/2020 11:38:41
--- OUTSIDE RECORDS SUMMARY | 2025-04-08 18:09 | XMS_ITS | Referral Summary ---
Author Organization [facility] Address [address] [place] [address] Care Team Providers Care Electroneurodiagnostic Technician Name Role Phone Sophia Cano NP Primary Care Provider [phone] Allergies Active Allergy Reactions Criticality Noted Date [...] x 1 week and send in via [facility]. 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 Gender Identity Not on file Sexual Orientation Not on file Last Filed Vital Signs Vital Sign Reading Time Taken Comments Blood Pressure 144/90 11/26/2023 8:17 AM ROOF SERVICE TECHNICIAN Pulse 94 11/26/2023 8:17 AM ROOF SERVICE TECHNICIAN Temperature 37.7 C (99.9 F) 11/26/2023 8:17 AM ROOF SERVICE TECHNICIAN Respiratory Rate 16 11/26/2023 8:17 AM ROOF SERVICE TECHNICIAN Oxygen Saturation 96% 11/26/2023 8:17 AM ROOF SERVICE TECHNICIAN Inhaled Oxygen Concentration - - Weight 102.2 kg (225 lb 3.2 oz) 11/26/2023 8:17 AM ROOF SERVICE TECHNICIAN Height 180.3 cm (5' 10.98) 11/26/2023 8:[address] Body Mass Index 31.42 11/26/2023 8:17 AM ROOF SERVICE TECHNICIAN Plan of Treatment Not on file Procedures Procedure Name Priority Date/Time Associated Diagnosis Comments PSA SCREEN Routine 08/06/2023 9:31 AM CDT Screening PSA (prostate specific antigen) HEPATITIS C ANTIBODY Routine 08/20/2020 1:29 PM CDT Screening examination for sexually transmitted disease from Last 3 Months or Most Recently Relevant to Health Maintenance Results * PSA screen (08/06/2023 9:31 AM CDT) PSA-Total 1.06 <=3.90 ng/mL [facility] Comment: Interpretive Data AGE SEX REFERENCE INTERVAL [...] 9:31 AM CDT 08/06/2023 2:18 PM CDT us Sophia Cano NP LAB BLOOD ORDERABLES Final Resul t [facility] [address] Department [place] [employer] [address] * Hepatitis C antibody (08/20/2020 1:29 PM CDT) Hep C Ab Nonreactive Nonreactive [facility] Comment:Antibodies to HCV no t detected. Does NOT exclude the possibility of recent exposure to HCV. Blood specimen (specimen) 08/20/2020 1:29 PM CDT 08/20/2020 5:23 PM CDT Robby Boogie MD LAB MICROBIOLOGY - GENERA L ORDERABLES Edited Result - Final [facility] Department [place] [address] from Last 3 Months or Most Recently Relevant to Health Maintenance Insurance [facility] [employer] [facility] Care Teams Electroneurodiagnostic Technician Relationship Specialty Start Date End Date Sophia Cano NP [address] [place] [address] PCP - General Family Medicine 08/06/23
== END 2025-04-08 16:33 | disposition home or self-care (01) ==
PROVIDERS: Emergency Provider Emergency Medicine
DX: S30.0XXA Contusion of lower back and pelvis, initial encounter (principal); S63.615A Unspecified sprain of left ring finger, initial encounter; S63.613A Unspecified sprain of left middle finger, initial encounter; W01.0XXA Fall on same level from slipping, tripping and stumbling without subsequent striking against object, initial encounter
CPT/HCPCS: 29130; 72100; 72220; 73130; 73140; 99284